=== PATIENT | male | born 1985 | race Caucasian/White ===

== ENCOUNTER 2017-08-27 15:46 | Inpatient (IN) | payer OTHER ==
[2017-08-27 18:55] VITALS: BMI 32.5
--- NOTE | 2017-08-27 19:31 | HP ---
COWS - Scale Resting Pulse: 0= [place] 80 or Below Sweatin=Flushed/Facial Moisture Restless Observation: 3= Extraneous Movement Pupil Size: 2= Moderately Dilated Bone or Joint Aches: 2= Severe Diffuse Aches Runny Nose/ Eye Tearin= Runny Nose/Eyes GI Upset > 30mins: 3= Vomiting/Diarrhea Tremor Observation: 2= Slight Tremor Visible Yawning Observation: 2= >3x During Session Anxiety or Irritability: 2=Irritable/Anxious Goose Flesh Skin: 0=Smooth Skin COWS Score: 20 CIWA Score - CIWA Score Nausea/Vomitin Muscle Tremors: 3 Anxiety: 3 Agitation: 3 Paroxysmal Sweats: 2 Orientation: 0-Oriented Tacttile Disturbances: 2-Mild Itch/Numbness/Burn Auditory Disturbances: 2-Mild Harshness/Frighten Visual Disturbances: 0-None Headache: 2-Mild CIWA-Ar Total Score: 20 Admission ROS BHS - HPI Chief Complaint: i need help to stop using heroin and alcohol Allergies/Adverse Reactions: Allergies Allergy/AdvReac Type Severity Reaction Status Date / Time No Known Allergies Allergy Verified 08/27/17 19:35 History of Present Illness: this 32 years old male with heroin and alcohol dependence dependence,seeking detox,withdrawal symptom,[facility] treatment [facility] discharged on 07/09/17 nicotine dependence anxiety,depressive,insomnia longest period of sobriety 6 months Exam Limitations: No Limitations - Ebola screening Have you traveled outside of the country in the last 21 days: No (N) Have you had contact with anyone from an Ebola affected area: No Have you been sick,other than usual withdrawal symptoms: No Do you have a fever: No - Review of Systems Constitutional: Chills, Loss of Appetite, Malaise, Night Sweats, Changes in sleep, Weakness EENT: reports: Tearing, Nose Congestion Respiratory: reports: No Symptoms reported Cardiac: reports: No Symptoms Reported GI: reports: Diarrhea, Nausea, Vomiting, Abdominal cramping : reports: No Symptoms Reported Musculoskeletal: reports: Back Pain, Joint Pain, Muscle Pain, Joint Stiffness Integumentary: reports: Dryness Neuro: reports: Headache, Tremors Endocrine: reports: No Symptoms Reported Hematology: reports: No Symptoms Reported Psychiatric: reports: No Sypmtoms Reported, Judgement Intact, Mood/Affect Appropiate, Orientated x3, Agitated, Depressed Patient History - Patient Medical History Hx Anemia: No Hx Asthma: No Hx Chronic Obstructive Pulmonary Disease (COPD): No Hx Cancer: No Hx Cardiac Disorders: No Hx Congestive Heart Failure: No Hx Hypertension: No Hx Hypercholesterolemia: No Hx Pacemaker: No HX Cerebrovascular Accident: No Hx Seizures: No Hx Dementia: No Hx Diabetes: No Hx Gastrointestinal Disorders: No Hx Liver Disease: No Hx Genitourinary Disorders: No Hx Sexually Transmitted Disorders: No Hx Renal Disease (ESRD): No Hx Thyroid Disease: No Hx Human Immunodeficiency Virus (HIV): No (negative last 09/04) Hx Hepatitis C: No Hx Depression: Yes Hx Suicide Attempt: No (denies) Hx Bipolar Disorder: No Hx Schizophrenia: No Other Medical History: anxiety,insomnia - Patient Surgical History Past Surgical History: No Hx Neurologic Surgery: No Hx Cataract Extraction: No Hx Cardiac Surgery: No Hx Lung Surgery: No Hx Breast Surgery: No Hx Breast Biopsy: No Hx Abdominal Surgery: No Hx Appendectomy: No Hx Cholecystectomy: No Hx Genitourinary Surgery: No Hx Section: No Hx Orthopedic Surgery: No Anesthesia Reaction: No - PPD History Previous Implant?: Yes Documented Results: Negative w/o proof Implanted On Prior [facility] Admission?: Yes Date: 12/12/15 PPD to be Administered?: Yes - Smoking Cessation Smoking history: Current every day smoker Have you smoked in the past 12 months: Yes Aproximately how many cigarettes per day: 20 Hx Chewing Tobacco Use: No Initiated information on smoking cessation: Yes 'Breaking Loose' booklet given: 08/27/17 - Substance & Tx. History Hx Alcohol Use: Yes Hx Substance Use: Yes Substance Use Type: Alcohol, Heroin Hx Substance Use Treatment: Yes ([facility] 07/09/17) - Substances Abused Heroin Route: Inhalation Frequency: Daily Amount used: 5 bags Age of first use: 24 Date of Last Use: 08/27/17 Alcohol Route: Oral Frequency: Daily Amount used: 1pint of vodka Age of first use: 14 Date of Last Use: 08/27/17 Family Disease History - Family Disease History Family Disease History: Other: Mother (alcohol), Brother (alcohol,dsa) Admission Physical Exam BHS - Vital Signs Vital Signs: Vital Signs - 24 hr 08/27/17 18:53 Temperature 99.7 F H Pulse Rate 75 Respiratory 18 Rate Blood Pressure 141/80 - Physical General Appearance: Yes: Moderate Distress, Tremorous, Irritable, Sweating, Anxious HEENTM: Yes: Normal ENT Inspection, DANIEL, Pharynx Normal Respiratory: Yes: Within Normal Limits, Lungs Clear, Normal Breath Sounds Neck: Yes: Within Normal Limits, Supple, Trachea in good position Breast: Yes: Within Normal Limits Cardiology: Yes: Within Normal Limits, Regular Rhythm, Regular Rate, S1, S2 Abdominal: Yes: Within Normal Limits, Normal Bowel Sounds, Non Tender, Soft Genitourinary: Yes: Within Normal Limits Back: Yes: Normal Inspection, Muscle Spasm Musculoskeletal: Yes: full range of Motion, Back pain, Muscle Pain Extremities: Yes: Within Normal Limits, Normal Range of Motion, Tremors Neurological: Yes: enrollment services dean II-XII NML intact, Fully Oriented, Alert, Motor Strength 5/5 Integumentary: Yes: Dry Lymphatic: Yes: Within Normal Limits - Diagnostic (1) Opioid dependence with withdrawal Current Visit: No Status: Acute (2) Alcohol dependence with uncomplicated withdrawal Current Visit: No Status: Acute (3) Nicotine dependence Current Visit: No Status: Chronic Qualifiers: Nicotine product type: cigarettes Substance use status: uncomplicated Qualified Code(s): F17.210 - Nicotine dependence, cigarettes, uncomplicated (4) Insomnia secondary to depression with anxiety Current Visit: Yes Status: Acute Cleared for Admission [facility] - Detox or Rehab [facility] Level of Care: Medically Managed Detox Regimen/Protocol: Methadone/Librium [facility] Breath Alcohol Content Breath Alcohol Content: 0.013 Urine Drug Screen - Results Drug Screen Negative: No Urine Drug Screen Results: OPI-Opiates
[2017-08-27] MEDS ORDERED: chlordiazePOXIDE HCL 25 MG CAPSULE PO PRN (19:37)
[2017-08-27] MEDS ORDERED: MAGNESIUM CITRATE 300 ML BOTTLE PO PRN (19:37)
[2017-08-27] MEDS ORDERED: ACETAMINOPHEN 325 MG TABLET (FP) PO PRN (19:37)
[2017-08-27] MEDS ORDERED: guaiFENesin/D-METHORPHAN HB 10 ML UNIT-DOSE CUPS PO PRN (19:37)
[2017-08-27] MEDS ORDERED: LOPERAMIDE HCL 2 MG CAPSULE PO PRN (19:37)
[2017-08-27] MEDS ORDERED: MENTHOL/PHENOL 1 EACH UD MM PRN (19:37)
[2017-08-27] MEDS ORDERED: hydrOXYzine PAMOATE 50 MG CAPSULE (FP) PO PRN (19:37)
[2017-08-27] MEDS ORDERED: MAG HYDROX/AL HYDROX/SIMETH 30 ML UNIT-DOSE CUP PO PRN (19:37)
[2017-08-27] MEDS ORDERED: MAGNESIUM HYDROX 2400MG/30ML ORAL SUSPENSION 30 ML CUP PO PRN (19:37)
[2017-08-27] MEDS ORDERED: P-EPHED 60MG/TRIPROLIDI 2.5MG TABLET PO PRN (19:37)
[2017-08-27] MEDS ORDERED: IBUPROFEN 400 MG TABLET (FP) PO PRN (19:37)
[2017-08-27] MEDS ORDERED: CYCLOBENZAPRINE HCL 10 MG TABLET (FP) PO PRN (19:41)
[2017-08-27] MEDS ORDERED: METHADONE HCL 10 MG TABLET (FOR DETOX USE ONLY) PO ONE ×2 (20:00→23:00)
[2017-08-27] MEDS ORDERED: chlordiazePOXIDE HCL 25 MG CAPSULE PO ONE (20:00)
[2017-08-27] MEDS: NICOTINE 21 MG/24 HOURS TOPICAL PATCH TD SCH (20:53)
[2017-08-27] MEDS: NICOTINE POLACRILEX 2 MG GUM BC PRN ×2 (21:29→23:32)
[2017-08-27] MEDS ORDERED: MELATONIN 5 MG TABLETS PO PRN (22:00)
[2017-08-27] MEDS: THIAMINE HCL 100 MG TABLET (FP) PO SCH (22:21)
[2017-08-27] MEDS: chlordiazePOXIDE HCL 25 MG CAPSULE PO SCH (22:22)
[2017-08-27] MEDS: cloNIDine HCL 0.1 MG TABLET PO SCH (22:22)
[2017-08-28] MEDS: NICOTINE POLACRILEX 2 MG GUM BC PRN ×7 (01:34→23:22)
[2017-08-28] MEDS: chlordiazePOXIDE HCL 25 MG CAPSULE PO SCH ×4 (05:38→22:24)
[2017-08-28] MEDS ORDERED: METHADONE HCL 10 MG TABLET (FOR DETOX USE ONLY) PO SCH (10:00)
[2017-08-28 10:03] LABS: HEMATOCRIT 43.4 % (35.4-49); HEMOGLOBIN 14.8 GM/dL (11.7-16.9); MCH 31.9 pg (25.7-33.7); MCHC 34.1 g/dl (32.0-35.9); MEAN CELL VOLUME 93.8 fl (80-96); MEAN PLT VOLUME 9.1 fl (7.5-11.1); PLATELET COUNT 225 K/MM3 (134-434); RBC 4.63 M/mm3 (4.00-5.60); RDW 12.8 % (11.9-15.9); WHITE BLOOD COUNT 7.6 K/mm3 (4.0-10.0)
--- NOTE | 2017-08-28 10:09 | CONSULT ---
[facility] Psychiatric Consult - Data Date of interview: 08/28/17 Admission source: Self-referred Identifying data: Artis is a 32 y/o male single, employed, single, domiciled seeking Detox treatment for substance use. ETOH, Opioids, current daily smoker. [facility] Substance Abuse History: History of of Heroin and Alcohol. Several past in patient and out patient Detox treatment. last use 2 days ago, drank an unspecified amimunt of Vodka. He explained that he was in a Detox program @ [facility] in patient rehab for 3 mo completed the program last month unfortunately relapsed a couple of weeks ago. Please refer to addiction counselor note for more detailed drug history Medical History: He denies past or active medical problems Psychiatric History: No prior psychiatric hospitalization, no prior psyhiatric medciations was previuosly evaluated by a psychiatrist while admitted to Rehab. He admitted that he feels depressed and axious while under the influence of drugs, but clear mentally when off drugs. Occasionally feels discomfort, nervous around the crowd or being in group. Wish to be medciated with neurontin to decrease the craving and the pain Physical/Sexual Abuse/Trauma History: Denied Mental Status Exam - Mental Status Exam Alert and Oriented to: Place, Person Cognitive Function: Fair Patient Appearance: Well Groomed Mood: Depressed, Nervous Affect: Appropriate Patient Behavior: Cooperative Speech Pattern: Clear Voice Loudness: Normal Thought Process: Intact Thought Disorder: Not Present Hallucinations: None Suicidal Ideation: None Homicidal Ideation: None Insight/Judgement: Poor Sleep: Fair Appetite: Good Muscle strength/Tone: Normal Gait/Station: Normal Psychiatric Findings - Problem List ([place] 1, 2,3) (1) Depression Current Visit: Yes Status: Acute (2) Social anxiety disorder Current Visit: Yes Status: Acute (3) Alcohol dependence with uncomplicated withdrawal Current Visit: No Status: Acute (4) Opioid dependence with withdrawal Current Visit: No Status: Acute (5) Sedative, hypnotic or anxiolytic dependence with withdrawal, uncomplicated Current Visit: No Status: Acute (6) Nicotine dependence Current Visit: No Status: Chronic Qualifiers: Nicotine product type: cigarettes Substance use status: uncomplicated Qualified Code(s): F17.210 - Nicotine dependence, cigarettes, uncomplicated - Initial Treatment Plan Initial Treatment Plan: Continue present Detox treatment. Detox protocoal
[2017-08-28 10:13] LABS: URINE APPEARANCE CLEAR; URINE BILIRUBIN NEGATIVE (<2.0 mg/dL); URINE COLOR YELLOW; URINE GLUCOSE (UA) NEGATIVE (NEGATIVE); URINE KETONE NEGATIVE (NEGATIVE); URINE LEUK ESTERASE NEGATIVE (NEGATIVE); URINE NITRITE NEGATIVE (NEGATIVE); URINE PROTEIN NEGATIVE (NEGATIVE)
[2017-08-28 10:22] LABS: ALK PHOS 80 U/L (45-117); ANION GAP 8 (8-16); BILIRUBIN,TOTAL 0.6 mg/dL (0.2-1.0); BLOOD UREA NITROGEN 17 mg/dL (7-18); CALCIUM 8.8 mg/dL (8.5-10.1); CHLORIDE 100 mmol/L (98-107); CO2 32 mmol/L (21-32); GLUCOSE,RANDOM 100 mg/dL (74-106); POTASSIUM 3.9 mmol/L (3.5-5.1); SGOT/AST 27 U/L (15-37); SGPT/ALT 24 U/L (12-78); SODIUM 140 mmol/L (136-145); TOT PROT 6.6 g/dl (6.4-8.2)
[2017-08-28] MEDS: PRENATAL VITAMINS W/ FOLIC ACID TABLET (FP) PO SCH (10:32)
[2017-08-28] MEDS: cloNIDine HCL 0.1 MG TABLET PO SCH ×2 (10:32→22:26)
[2017-08-28] MEDS: NICOTINE 21 MG/24 HOURS TOPICAL PATCH TD SCH (10:36)
--- NOTE | 2017-08-28 15:13 | PN ---
S CIWA - CIWA Score Nausea/Vomitin-No Nausea/No Vomiting Muscle Tremors: 4-Moderate,w/Arms Extend Anxiety: 4-Mod. Anxious/Guarded Agitation: 4-Moderately Restless Paroxysmal Sweats: 1-Minimal Palms Moist Orientation: 0-Oriented Tacttile Disturbances: 0-None Auditory Disturbances: 0-None Visual Disturbances: 0-None Headache: 0-None Present CIWA-Ar Total Score: 13 BHS COWS - Scale Resting Pulse: 0= [place] 80 or Below Sweatin= Chills/Flushing Restless Observation: 3= Extraneous Movement Pupil Size: 0= Normal to Room Light Bone or Joint Aches: 4=Acute Joint/Muscle Pain Runny Nose/ Eye Tearin= Nasal Congestion GI Upset > 30mins: 1= Stomach Cramp Tremor Observation of Outstretched Hands: 1= Tremor [place], Not Seen Yawning Observation: 1= 1-2x During Session Anxiety or Irritability: 2=Irritable/Anxious Goose Flesh Skin: 0=Smooth Skin COWS Score: 14 S Progress Note (SOAP) Subjective: ANXIETY,SWEATS,"I FEEL UNCOMFORTABLE-ACHES", INTERMITTENT SLEEP. Objective: 08/28/17 15:11 Vital Signs 08/28/17 08/28/17 10:37 13:45 Temperature 96.8 F L 96.1 F L Pulse Rate 67 77 Respiratory 18 18 Rate Blood Pressure 107/61 114/70 Laboratory Tests 08/28/17 08/28/17 08/28/17 07:50 07:50 07:50 WBC 7.6 RBC 4.63 Hgb 14.8 Hct 43.4 MCV 93.8 MCH 31.9 MCHC 34.1 RDW 12.8 Plt Count 225 MPV 9.1 Sodium 140 Potassium 3.9 Chloride 100 Carbon Dioxide 32 Anion Gap 8 BUN 17 D Creatinine 1.0 Creat Clearance w eGFR > 60 Random Glucose 100 Calcium 8.8 Total Bilirubin 0.6 AST 27 D ALT 24 Alkaline Phosphatase 80 Total Protein 6.6 Albumin 4.0 Urine Color Urine Appearance Urine pH Ur Specific [place] Urine Protein Urine Glucose (UA) Urine Ketones Urine Blood Urine Nitrite Urine Bilirubin Urine Urobilinogen Ur Leukocyte Esterase RPR Titer Nonreactive 08/28/17 09:00 WBC RBC Hgb Hct MCV MCH MCHC RDW Plt Count MPV Sodium Potassium Chloride Carbon Dioxide Anion Gap BUN Creatinine Creat Clearance w eGFR Random Glucose Calcium Total Bilirubin AST ALT Alkaline Phosphatase Total Protein Albumin Urine Color Yellow Urine Appearance Clear Urine pH 6.0 Ur Specific [place] 1.016 Urine Protein Negative Urine Glucose (UA) Negative Urine Ketones Negative Urine Blood Negative Urine Nitrite Negative Urine Bilirubin Negative Urine Urobilinogen 2.0 Ur Leukocyte Esterase Negative RPR Titer Assessment: 08/28/17 15:12 WITHDRAWAL SX Plan: CONTINUE DETOX INCREASE PO FLUIDS
[2017-08-28] MEDS: CYCLOBENZAPRINE HCL 10 MG TABLET (FP) PO SCH (22:24)
[2017-08-28] MEDS: THIAMINE HCL 100 MG TABLET (FP) PO SCH (22:24)
[2017-08-29] MEDS: chlordiazePOXIDE HCL 25 MG CAPSULE PO SCH ×3 (05:35→17:35)
[2017-08-29] MEDS: CYCLOBENZAPRINE HCL 10 MG TABLET (FP) PO SCH ×3 (05:35→22:11)
[2017-08-29] MEDS: NICOTINE POLACRILEX 2 MG GUM BC PRN ×7 (05:35→22:10)
--- NOTE | 2017-08-29 09:00 | EKG ---
Test Reason : Blood Pressure : / mmHG Vent. Rate : 071 BPM Atrial Rate : 071 BPM P-R Int : 164 ms QRS Dur : 094 ms QT Int : 394 ms P-R-T Axes : 067 060 055 degrees QTc Int : 428 ms POOR DATA QUALITY, INTERPRETATION MAY BE ADVERSELY AFFECTED NORMAL SINUS RHYTHM NORMAL ECG NO PREVIOUS ECGS AVAILABLE Confirmed by PRISCILA SERVIN MD ([id number]) on 08/29/2017 9:00:16 AM Referred By: Confirmed By:PRISCILA SERVIN MD
[2017-08-29] MEDS: PRENATAL VITAMINS W/ FOLIC ACID TABLET (FP) PO SCH (10:35)
[2017-08-29] MEDS: METHADONE HCL 5 MG TABLET (FOR DETOX USE ONLY) PO SCH (10:35)
[2017-08-29] MEDS: cloNIDine HCL 0.1 MG TABLET PO SCH ×2 (10:35→22:11)
[2017-08-29] MEDS: NICOTINE 21 MG/24 HOURS TOPICAL PATCH TD SCH (10:35)
--- NOTE | 2017-08-29 12:00 | PN ---
[facility] CIWA - CIWA Score Nausea/Vomitin Muscle Tremors: 3 Anxiety: 3 Agitation: 3 Paroxysmal Sweats: 3 Orientation: 0-Oriented Tacttile Disturbances: 0-None Auditory Disturbances: 0-None Visual Disturbances: 0-None Headache: 0-None Present CIWA-Ar Total Score: 14 S COWS - Scale Resting Pulse: 0= [place] 80 or Below Sweatin=Flushed/Facial Moisture Restless Observation: 3= Extraneous Movement Pupil Size: 0= Normal to Room Light Bone or Joint Aches: 1= Mild Discomfort Runny Nose/ Eye Tearin= Nasal Congestion GI Upset > 30mins: 1= Stomach Cramp Tremor Observation of Outstretched Hands: 2= Slight Tremor Visible Yawning Observation: 0= None Anxiety or Irritability: 2=Irritable/Anxious Goose Flesh Skin: 0=Smooth Skin COWS Score: 12 [facility] Progress Note (SOAP) Subjective: Chills Sweats Generalized aches and pain Objective: 08/29/17 11:58 A & O x 3 Anxious Vital Signs Temperature 97.1 F L 08/29/17 09:40 Pulse Rate 69 08/29/17 09:40 Respiratory Rate 18 08/29/17 09:40 Blood Pressure 111/71 08/29/17 09:40 O2 Sat by Pulse Oximetry (%) Laboratory Last Values WBC 7.6 K/mm3 (4.0-10.0) 08/28/17 07:50 RBC 4.63 M/mm3 (4.00-5.60) 08/28/17 07:50 Hgb 14.8 GM/dL (11.7-16.9) 08/28/17 07:50 Hct 43.4 % (35.4-49) 08/28/17 07:50 MCV 93.8 fl (80-96) 08/28/17 07:50 MCH 31.9 pg (25.7-33.7) 08/28/17 07:50 MCHC 34.1 g/dl (32.0-35.9) 08/28/17 07:50 RDW 12.8 % (11.9-15.9) 08/28/17 07:50 Plt Count 225 K/MM3 (134-434) 08/28/17 07:50 MPV 9.1 fl (7.5-11.1) 08/28/17 07:50 Sodium 140 mmol/L (136-145) 08/28/17 07:50 Potassium 3.9 mmol/L (3.5-5.1) 08/28/17 07:50 Chloride 100 mmol/L (98-107) 08/28/17 07:50 Carbon Dioxide 32 mmol/L (21-32) 08/28/17 07:50 Anion Gap 8 (8-16) 08/28/17 07:50 BUN 17 mg/dL (7-18) D 08/28/17 07:50 Creatinine 1.0 mg/dL (0.7-1.3) 08/28/17 07:50 Creat Clearance w eGFR > 60 (>60) 08/28/17 07:50 Random Glucose 100 mg/dL (74-106) 08/28/17 07:50 Calcium 8.8 mg/dL (8.5-10.1) 08/28/17 07:50 Total Bilirubin 0.6 mg/dL (0.2-1.0) 08/28/17 07:50 AST 27 U/L (15-37) D 08/28/17 07:50 ALT 24 U/L (12-78) 08/28/17 07:50 Alkaline Phosphatase 80 U/L (45-117) 08/28/17 07:50 Total Protein 6.6 g/dl (6.4-8.2) 08/28/17 07:50 Albumin 4.0 g/dl (3.4-5.0) 08/28/17 07:50 Urine Color Yellow 08/28/17 09:00 Urine Appearance Clear 08/28/17 09:00 Urine pH 6.0 (5.0-8.0) 08/28/17 09:00 Ur Specific [place] 1.016 (1.001-1.035) 08/28/17 09:00 Urine Protein Negative (NEGATIVE) 08/28/17 09:00 Urine Glucose (UA) Negative (NEGATIVE) 08/28/17 09:00 Urine Ketones Negative (NEGATIVE) 08/28/17 09:00 Urine Blood Negative (NEGATIVE) 08/28/17 09:00 Urine Nitrite Negative (NEGATIVE) 08/28/17 09:00 Urine Bilirubin Negative (<2.0 mg/dL) 08/28/17 09:00 Urine Urobilinogen 2.0 mg/dL (0.2-1.0) 08/28/17 09:00 Ur Leukocyte Esterase Negative (NEGATIVE) 08/28/17 09:00 RPR Titer Nonreactive (NONREACTIVE) 08/28/17 07:50 noted labs Assessment: 08/29/17 11:59 withdrawal sx Plan: Continue detox Continue increased hydration
[2017-08-29] MEDS: THIAMINE HCL 100 MG TABLET (FP) PO SCH (22:11)
[2017-08-29] MEDS: chlordiazePOXIDE 5 MG CAPSULE PO SCH (22:12)
[2017-08-30] MEDS: NICOTINE POLACRILEX 2 MG GUM BC PRN ×10 (02:11→23:54)
[2017-08-30] MEDS: chlordiazePOXIDE 5 MG CAPSULE PO SCH ×3 (05:27→17:23)
[2017-08-30] MEDS: CYCLOBENZAPRINE HCL 10 MG TABLET (FP) PO SCH ×3 (06:04→22:16)
[2017-08-30] MEDS: METHADONE HCL 5 MG TABLET (FOR DETOX USE ONLY) PO SCH (10:01)
[2017-08-30] MEDS: PRENATAL VITAMINS W/ FOLIC ACID TABLET (FP) PO SCH (10:02)
[2017-08-30] MEDS: NICOTINE 21 MG/24 HOURS TOPICAL PATCH TD SCH (10:02)
[2017-08-30] MEDS: cloNIDine HCL 0.1 MG TABLET PO SCH ×2 (10:02→22:22)
--- NOTE | 2017-08-30 14:02 | PN ---
BHS Progress Note (SOAP) Subjective: Fatigue, Body Aches. Objective: PATIENT A & O X 3. NO ACUTE DISTRESS. 08/30/17 14:01 Vital Signs Temperature 97.1 F L 08/30/17 09:20 Pulse Rate 81 08/30/17 09:20 Respiratory Rate 16 08/30/17 09:20 Blood Pressure 128/90 08/30/17 09:20 O2 Sat by Pulse Oximetry (%) Laboratory Tests 08/28/17 08/28/17 08/28/17 07:50 07:50 07:50 WBC 7.6 RBC 4.63 Hgb 14.8 Hct 43.4 MCV 93.8 MCH 31.9 MCHC 34.1 RDW 12.8 Plt Count 225 MPV 9.1 Sodium 140 Potassium 3.9 Chloride 100 Carbon Dioxide 32 Anion Gap 8 BUN 17 D Creatinine 1.0 Creat Clearance w eGFR > 60 Random Glucose 100 Calcium 8.8 Total Bilirubin 0.6 AST 27 D ALT 24 Alkaline Phosphatase 80 Total Protein 6.6 Albumin 4.0 Urine Color Urine Appearance Urine pH Ur Specific [place] Urine Protein Urine Glucose (UA) Urine Ketones Urine Blood Urine Nitrite Urine Bilirubin Urine Urobilinogen Ur Leukocyte Esterase RPR Titer Nonreactive 08/28/17 09:00 WBC RBC Hgb Hct MCV MCH MCHC RDW Plt Count MPV Sodium Potassium Chloride Carbon Dioxide Anion Gap BUN Creatinine Creat Clearance w eGFR Random Glucose Calcium Total Bilirubin AST ALT Alkaline Phosphatase Total Protein Albumin Urine Color Yellow Urine Appearance Clear Urine pH 6.0 Ur Specific [place] 1.016 Urine Protein Negative Urine Glucose (UA) Negative Urine Ketones Negative Urine Blood Negative Urine Nitrite Negative Urine Bilirubin Negative Urine Urobilinogen 2.0 Ur Leukocyte Esterase Negative RPR Titer LABS NOTED. Assessment: 08/30/17 14:01 WITHDRAWAL SYMPTOMS. Plan: CONTINUE DETOX.
[2017-08-30] MEDS: THIAMINE HCL 100 MG TABLET (FP) PO SCH (22:16)
[2017-08-30] MEDS: chlordiazePOXIDE HCL 10 MG CAPSULE PO SCH (22:16)
[2017-08-31] MEDS: NICOTINE POLACRILEX 2 MG GUM BC PRN ×7 (01:56→22:24)
[2017-08-31] MEDS: chlordiazePOXIDE HCL 10 MG CAPSULE PO SCH ×3 (05:49→17:26)
[2017-08-31] MEDS: CYCLOBENZAPRINE HCL 10 MG TABLET (FP) PO SCH ×3 (05:50→22:22)
[2017-08-31] MEDS ORDERED: METHADONE HCL 10 MG TABLET (FOR DETOX USE ONLY) PO SCH (10:00)
[2017-08-31] MEDS: PRENATAL VITAMINS W/ FOLIC ACID TABLET (FP) PO SCH (10:29)
[2017-08-31] MEDS: cloNIDine HCL 0.1 MG TABLET PO SCH ×2 (10:29→22:22)
[2017-08-31] MEDS: NICOTINE 21 MG/24 HOURS TOPICAL PATCH TD SCH (10:29)
--- NOTE | 2017-08-31 13:37 | PN ---
BHS Progress Note (SOAP) Subjective: Body Aches, Fatigue, Interrupted Sleep. Objective: PATIENT A & O X 3, OBSERVED AMBULATING ON UNIT. NO ACUTE DISTRESS. 08/31/17 13:35 Vital Signs Temperature 97.6 F 08/31/17 13:10 Pulse Rate 88 08/31/17 13:10 Respiratory Rate 18 08/31/17 13:10 Blood Pressure 105/63 08/31/17 13:10 O2 Sat by Pulse Oximetry (%) Laboratory Tests 08/28/17 08/28/17 08/28/17 07:50 07:50 07:50 WBC 7.6 RBC 4.63 Hgb 14.8 Hct 43.4 MCV 93.8 MCH 31.9 MCHC 34.1 RDW 12.8 Plt Count 225 MPV 9.1 Sodium 140 Potassium 3.9 Chloride 100 Carbon Dioxide 32 Anion Gap 8 BUN 17 D Creatinine 1.0 Creat Clearance w eGFR > 60 Random Glucose 100 Calcium 8.8 Total Bilirubin 0.6 AST 27 D ALT 24 Alkaline Phosphatase 80 Total Protein 6.6 Albumin 4.0 Urine Color Urine Appearance Urine pH Ur Specific [place] Urine Protein Urine Glucose (UA) Urine Ketones Urine Blood Urine Nitrite Urine Bilirubin Urine Urobilinogen Ur Leukocyte Esterase RPR Titer Nonreactive 08/28/17 09:00 WBC RBC Hgb Hct MCV MCH MCHC RDW Plt Count MPV Sodium Potassium Chloride Carbon Dioxide Anion Gap BUN Creatinine Creat Clearance w eGFR Random Glucose Calcium Total Bilirubin AST ALT Alkaline Phosphatase Total Protein Albumin Urine Color Yellow Urine Appearance Clear Urine pH 6.0 Ur Specific [place] 1.016 Urine Protein Negative Urine Glucose (UA) Negative Urine Ketones Negative Urine Blood Negative Urine Nitrite Negative Urine Bilirubin Negative Urine Urobilinogen 2.0 Ur Leukocyte Esterase Negative RPR Titer LABS NOTED. Assessment: 08/31/17 13:36 WITHDRAWAL SYMPTOMS. Plan: CONTINUE DETOX. PATIENT SCHEDULED FOR D/C TOMORROW.
[2017-08-31] MEDS: THIAMINE HCL 100 MG TABLET (FP) PO SCH (22:22)
[2017-09-01] MEDS ORDERED: METHADONE HCL 5 MG TABLET (FOR DETOX USE ONLY) PO SCH (06:00)
[2017-09-01] MEDS: NICOTINE POLACRILEX 2 MG GUM BC PRN (09:09)
[2017-09-01 10:00] VITALS: BP 112/73; PULSE 97; TEMP 98.5
[2017-09-01] MEDS: CYCLOBENZAPRINE HCL 10 MG TABLET (FP) PO SCH (10:00)
--- NOTE | 2017-09-01 16:15 | PN ---
BHS Progress Note (SOAP) Subjective: Patient denies current Detox symptoms and reports that he feels well overall. Objective: PATIENT A & O X 3, OBSERVED AMBULATING ON UNIT. NO ACUTE DISTRESS. 09/01/17 16:14 Vital Signs Temperature 98.5 F 09/01/17 10:00 Pulse Rate 97 H 09/01/17 10:00 Respiratory Rate 20 09/01/17 10:00 Blood Pressure 112/73 09/01/17 10:00 O2 Sat by Pulse Oximetry (%) Laboratory Tests 08/28/17 08/28/17 08/28/17 07:50 07:50 07:50 WBC 7.6 RBC 4.63 Hgb 14.8 Hct 43.4 MCV 93.8 MCH 31.9 MCHC 34.1 RDW 12.8 Plt Count 225 MPV 9.1 Sodium 140 Potassium 3.9 Chloride 100 Carbon Dioxide 32 Anion Gap 8 BUN 17 D Creatinine 1.0 Creat Clearance w eGFR > 60 Random Glucose 100 Calcium 8.8 Total Bilirubin 0.6 AST 27 D ALT 24 Alkaline Phosphatase 80 Total Protein 6.6 Albumin 4.0 Urine Color Urine Appearance Urine pH Ur Specific [place] Urine Protein Urine Glucose (UA) Urine Ketones Urine Blood Urine Nitrite Urine Bilirubin Urine Urobilinogen Ur Leukocyte Esterase RPR Titer Nonreactive 08/28/17 09:00 WBC RBC Hgb Hct MCV MCH MCHC RDW Plt Count MPV Sodium Potassium Chloride Carbon Dioxide Anion Gap BUN Creatinine Creat Clearance w eGFR Random Glucose Calcium Total Bilirubin AST ALT Alkaline Phosphatase Total Protein Albumin Urine Color Yellow Urine Appearance Clear Urine pH 6.0 Ur Specific [place] 1.016 Urine Protein Negative Urine Glucose (UA) Negative Urine Ketones Negative Urine Blood Negative Urine Nitrite Negative Urine Bilirubin Negative Urine Urobilinogen 2.0 Ur Leukocyte Esterase Negative RPR Titer LABS NOTED. Assessment: 09/01/17 16:14 COMPLETION OF DETOX REGIMEN. Plan: PATIENT SCHEDULED FOR DISCHARGE FROM DETOX UNIT TODAY.
--- NOTE | 2017-09-01 16:19 | DS ---
[facility] Detox Discharge Summary Admission Date: 08/27/17 Discharge Date: 09/01/17 - History Present History: Alcohol Dependence, Opioid Dependence, Sedative Dependence Additional Comments: PATIENT GOING TO [facility] ([place] FOR AFTERCARE. PATIENT WAS DISCHARGED FROM DETOX UNIT IN STABLE MEDICAL CONDITION. Pertinent Past History: Depression, Anxiety, Insomnia, Social Anxiety Disorder. - Physical Exam Results Vital Signs: Vital Signs Temperature 98.5 F 09/01/17 10:00 Pulse Rate 97 H 09/01/17 10:00 Respiratory Rate 20 09/01/17 10:00 Blood Pressure 112/73 09/01/17 10:00 O2 Sat by Pulse Oximetry (%) Pertinent Admission Physical Exam Findings: WITHDRAWAL SYMPTOMS. Laboratory Tests 08/28/17 08/28/17 08/28/17 07:50 07:50 07:50 WBC 7.6 RBC 4.63 Hgb 14.8 Hct 43.4 MCV 93.8 MCH 31.9 MCHC 34.1 RDW 12.8 Plt Count 225 MPV 9.1 Sodium 140 Potassium 3.9 Chloride 100 Carbon Dioxide 32 Anion Gap 8 BUN 17 D Creatinine 1.0 Creat Clearance w eGFR > 60 Random Glucose 100 Calcium 8.8 Total Bilirubin 0.6 AST 27 D ALT 24 Alkaline Phosphatase 80 Total Protein 6.6 Albumin 4.0 Urine Color Urine Appearance Urine pH Ur Specific [place] Urine Protein Urine Glucose (UA) Urine Ketones Urine Blood Urine Nitrite Urine Bilirubin Urine Urobilinogen Ur Leukocyte Esterase RPR Titer Nonreactive 08/28/17 09:00 WBC RBC Hgb Hct MCV MCH MCHC RDW Plt Count MPV Sodium Potassium Chloride Carbon Dioxide Anion Gap BUN Creatinine Creat Clearance w eGFR Random Glucose Calcium Total Bilirubin AST ALT Alkaline Phosphatase Total Protein Albumin Urine Color Yellow Urine Appearance Clear Urine pH 6.0 Ur Specific [place] 1.016 Urine Protein Negative Urine Glucose (UA) Negative Urine Ketones Negative Urine Blood Negative Urine Nitrite Negative Urine Bilirubin Negative Urine Urobilinogen 2.0 Ur Leukocyte Esterase Negative RPR Titer LABS NOTED. - Treatment Hospital Course: Detox Protocol Followed, Detoxed Safely, Responded well, Discharged Condition Good, Rehab Referral Accepted Patient has Accepted a Rehab Referral to: [facility] ([place] - Medication Discharge Medications: Ambulatory Orders NK [No Known Home Medication] 12/10/15 - Diagnosis (1) Alcohol dependence with uncomplicated withdrawal Status: Acute (2) Opioid dependence with withdrawal Status: Acute (3) Insomnia secondary to depression with anxiety Status: Chronic (4) Nicotine dependence Status: Chronic Qualifiers: Nicotine product type: cigarettes Substance use status: in withdrawal Qualified Code(s): F17.213 - Nicotine dependence, cigarettes, with withdrawal (5) Sedative, hypnotic or anxiolytic dependence with withdrawal, uncomplicated Status: Acute (6) Social anxiety disorder Status: Acute - AMA Did Patient Leave Against Medical Advice: No
== END 2017-09-01 10:05 | disposition home or self-care (01) | DRG 773 ==
LOC: YASAS 15:46 → Y3N 19:32
PROVIDERS: ADMIT Surgery; ATTEND Surgery
PROC: HZ2ZZZZ Detoxification Services for Substance Abuse Treatment (ICD-10-PCS; principal; 2017-08-27)
DX: F11.23 Opioid dependence with withdrawal (principal); F10.230 Alcohol dependence with withdrawal, uncomplicated; F17.213 Nicotine dependence, cigarettes, with withdrawal; F40.10 Social phobia, unspecified; F32.9 Major depressive disorder, single episode, unspecified
CPT/HCPCS: 36415; 80053; 81003; 85027; 86593; 93005; 93010; J0735